=== PATIENT | female | born 1955 | race Caucasian/White ===

== ENCOUNTER 2017-05-27 06:57 | Day surgery (SDC) | payer BC ==
[~2017-05-27 06:57] MED LIST: Acetaminophen TAB* 325 MG PO PRN; Buffered Lidocaine 0.9% SYRIN* 5 ML/SYR SYRINGE INTRADERM ONE
[2017-05-27] MEDS ORDERED: fentaNYL* 50 MCG/ML 2 ML VIAL (100 MCG VIAL) ONE (07:27)
[2017-05-27] MEDS ORDERED: Midazolam* 1 MG/ML 5 ML VIAL (5 MG) ONE (07:27)
[2017-05-27 09:02] VITALS: BP 100/61
--- NOTE | 2017-05-27 09:28 | OP ---
DATE OF OPERATION: 05/27/2017. DATE OF : 1955. SURGEON: Merrill Kumar M.D. PREOPERATIVE DIAGNOSIS: Cataract right eye. POSTOPERATIVE DIAGNOSIS: Cataract right eye. OPERATIVE PROCEDURE: Phacoemulsification right eye with IOL. PROCEDURE: The patient was brought to the operating room after being given 1/2% Alcaine with epinep hrine drops in the preoperative area. The eye was prepped and draped in the usual sterile fashion. Sterile drape and eyelid speculum were placed. Again, topical 1/2% Alcaine with epinephrine was gi aimee. A paracentesis incision was made at the 9 o'clock position with the No.75 blade. Clear cornea incision 2.2 x 2.2-mm was created at the 12 o'clock position starting at the anterior limbus using the 2.2-mm keratome. The anterior chamber was irrigated with 0.4 mL of 1% non-preservative intracam eral lidocaine and filled with DisCoVisc. A capsulorrhexis was completed using the cystotome and th e Utrata forceps. Hydrodissection was performed with balanced salt solution. The lens nucleus was r emoved with the Phacoemulsification handpiece without incident. Cortex was removed with the irrigat ion-aspiration handpiece. The capsular bag was re-inflated using DisCoVisc and an [id number] implant was inserted with the shooter, oriented to the 104 degree meridian. Horizontal reference martinez mad e with the patient seated in the preoperative area. The irrigation-aspiration handpiece was used to remove all residual DisCoVisc. The eye was refilled with balanced salt solution and the wound chec ked and found to be watertight. Topical Maxitrol drops were given. [id number]/[facility] #: [id number]
[2017-05-27] MEDS ORDERED: Cyclopentolate 1% OPTH.SOL* 2 ML BTL ONE (10:03)
[2017-05-27] MEDS ORDERED: Phenylephrine 2.5% OPTH.SOL* 2 ML BTL ONE (10:03)
[2017-05-27] MEDS ORDERED: Buffered Lidocaine 0.9% SYRIN* 5 ML/SYR SYRINGE ONE (10:03)
[2017-05-27] MEDS ORDERED: Lidocaine 1% MPF* 2 ML VIAL ONE (10:03)
[2017-05-27] MEDS ORDERED: Proparacaine 0.5% OPHTH.SOL* 15 ML BTL ONE (10:03)
[2017-05-27] MEDS ORDERED: Flurbiprofen 0.03% OPTH.SOL* 2.5 ML BTL ONE (10:03)
[2017-05-27] MEDS ORDERED: Neomycin/Polymy/Dex OPTH.SUSP* MAXITROL 0.1% 5 ML ONE (10:03)
[2017-05-27] MEDS ORDERED: acetaZOLAMIDE TAB* 250 MG ONE (10:03)
[2017-05-27] MEDS ORDERED: Povidone Iodine 5% OPTH* 30 ML BTL ONE (10:03)
== END 2017-05-27 09:11 | disposition home or self-care (01) ==
LOC: OREAST 06:57
PROVIDERS: ATTEND Specialist
DX: H25.811 Combined forms of age-related cataract, right eye (principal); H43.813 Vitreous degeneration, bilateral
CPT/HCPCS: A9270-GY; J2250; J3010; V2787

== ENCOUNTER 2017-06-03 08:19 | Day surgery (SDC) | payer BC ==
[2017-06-03] MEDS ORDERED: fentaNYL* 50 MCG/ML 2 ML VIAL (100 MCG VIAL) ONE (10:01)
[2017-06-03] MEDS ORDERED: Midazolam* 1 MG/ML 2 ML VIAL (2 MG) ONE (10:01)
[2017-06-03 10:24] VITALS: BP 115/54
[2017-06-03] MEDS ORDERED: Neomycin/Polymy/Dex OPTH.SUSP* MAXITROL 0.1% 5 ML ONE (12:26)
[2017-06-03] MEDS ORDERED: Cyclopentolate 1% OPTH.SOL* 2 ML BTL ONE (12:26)
[2017-06-03] MEDS ORDERED: Flurbiprofen 0.03% OPTH.SOL* 2.5 ML BTL ONE (12:26)
[2017-06-03] MEDS ORDERED: Povidone Iodine 5% OPTH* 30 ML BTL ONE (12:26)
[2017-06-03] MEDS ORDERED: acetaZOLAMIDE TAB* 250 MG ONE (12:26)
[2017-06-03] MEDS ORDERED: Buffered Lidocaine 0.9% SYRIN* 5 ML/SYR SYRINGE ONE (12:26)
[2017-06-03] MEDS ORDERED: Phenylephrine 2.5% OPTH.SOL* 2 ML BTL ONE (12:26)
[2017-06-03] MEDS ORDERED: Proparacaine 0.5% OPHTH.SOL* 15 ML BTL ONE (12:26)
[2017-06-03] MEDS ORDERED: Lidocaine 1% MPF* 2 ML VIAL ONE (12:26)
--- NOTE | 2017-06-03 15:08 | OP ---
DATE OF OPERATION: 06/03/17 [facility] DATE OF : [birth year] SURGEON: Merrill Kumar M.D. PREOPERATIVE DIAGNOSIS: Cataract, left eye. POSTOPERATIVE DIAGNOSIS: Cataract, left eye. OPERATIVE PROCEDURE: Phacoemulsification, left eye with IOL. DESCRIPTION OF PROCEDURE: The patient was brought to the operating room after being given 1/2% Alcaine with epinephrine drops in the preoperative area. The eye was prepped and draped in the usual sterile fashion. Sterile drape and eyelid speculum were placed. Again, topical 1/2% Alcaine with epinephrine was given. A paracentesis incision was made at the 3 o'clock position with the No.75 blade. Clear cornea incision 2.2 x 2.2-mm was created at the 6 o'clock position starting at the anterior limbus using the 2.2-mm keratome. The anterior chamber was irrigated with 0.4 mL of 1% non-preservative intracameral lidocaine and filled with DisCoVisc. A capsulorrhexis was completed using the cystotome and the Utrata forceps. Hydrodissection was performed with balanced salt solution. The lens nucleus was removed with the Phacoemulsification handpiece without incident. Cortex was removed with the irrigation-aspiration handpiece. The capsular bag was re-inflated using DisCoVisc and an [id number] 17.5 oriented to 84-degree meridian implant was inserted with the shooter. Horizontal reference martinez were made with the patient seated in the preoperative area. The irrigation-aspiration handpiece was used to remove all residual DisCoVisc. The eye was refilled with balanced salt solution and the wound checked and found to be watertight. Topical Maxitrol drops were given. [id number]/[facility] #: [id number] MTDD
== END 2017-06-03 10:32 | disposition home or self-care (01) ==
LOC: OREAST 08:19
PROVIDERS: ATTEND Specialist
DX: H25.812 Combined forms of age-related cataract, left eye (principal); Z96.1 Presence of intraocular lens; H43.813 Vitreous degeneration, bilateral
CPT/HCPCS: A9270-GY; J2250; J3010; V2787